=== PATIENT | female | born 1985 | race American Indian/Alaskan Native ===

== ENCOUNTER 2019-01-12 18:24 | Emergency (ER) | payer OTHER, SELFPAY ==
[2019-01-12 18:33] VITALS: BP 147/100; PULSE 112; RESP 20; TEMP 37.3; O2SAT 100
--- NOTE | 2019-01-12 18:47 | ED_ITS ---
HPI - Female Genitourinary General Chief complaint: Vaginal Bleeding Stated complaint: EXCESSIVE VAGINAL BLEEDING Time Seen by Provider: 01/12/19 18:46 Source: patient Mode of arrival: ambulatory Limitations: no limitations History of Present Illness HPI Narrative: The patient developed vaginal bleeding 3 days ago, this is her 4th day. The bleeding is much heavier than usual. She spotted about 1 month ago, she thought she had a menstrual cycle. She is uncertain of , she tells me she has been trying to conceive. She is 0, para 0. She has low back cramping. She has mild abdominal pain. She denies weakness and dizziness. She has no bleeding history. She is generally healthy. She denies dysuria. She has had no fever or chills. Related Data Home Medications Medication Instructions Recorded Confirmed cetirizine [Zyrtec] 10 mg PO DAILY 01/12/19 01/12/19 fluticasone propionate [Flonase 1 spray INTRANASAL DAILY 01/12/19 01/12/19 Allergy Relief] Allergies Allergy/AdvReac Type Severity Reaction Status Date / Time No Known Drug Allergies Allergy Verified 01/12/19 18:35 Review of Systems Review of Systems ROS Unobtainable: All systems reviewed & are unremarkable except as noted in HPI and below Constitutional Denies frequent falls ENT Ears, Nose, Mouth, and Throat: Denies dizziness Cardiovascular Denies chest pain, Denies irregular heart rhythm, Denies lightheadedness, Denies palpitations, Denies dyspnea, Denies dyspnea on exertion and Denies orthopnea Respiratory Denies cough, Denies dyspnea, Denies dyspnea on exertion and Denies wheezing Gastrointestinal Gastrointestinal: Reports abdominal pain (Mild suprapubic discomfort.), Denies change in bowel habits, Denies diarrhea, Denies nausea and Denies vomiting Genitourinary Reports as per HPI (Regarding vaginal bleeding), Denies hematuria, Denies flank pain, Denies urinary incontinence and Denies urinary urgency Musculoskeletal Reports back pain and Denies numbness Integumentary/Breasts Denies pruritus, Denies erythema, Denies rash and Denies wounds Neurologic Denies behavioral changes, Denies confusion, Denies dizziness, Denies frequent falls and Denies numbness Psychiatric Denies behavioral changes and Denies confusion Endocrine Denies palpitations Allergic/Immunologic Denies wheezing [facility] Medical History (Updated 01/13/19 @ 00:38 by Devon Johnson MD) No active medical problems (Acute) Surgical History (Updated 01/13/19 @ 00:38 by Devon Johnson MD) No pertinent past surgical history (Acute) Social History Smoking Status: Never smoker Social History Smoking Status: Never smoker Exam Initial Vital Signs Initial Vital Signs: Vital Signs Temperature 99.2 F 01/12/19 18:33 Pulse Rate 112 H 01/12/19 18:33 Respiratory Rate 20 01/12/19 18:33 Blood Pressure 147/100 H 01/12/19 18:33 Pulse Oximetry 100 01/12/19 18:33 Const General: cooperative and well developed Nutritional Appearance: well nourished Orientation: alert, awake, oriented x3 and not confused HENMT Head: normocephalic and atraumatic Resp Effort & Inspection: normal respiratory effort, able to speak in complete sentences, no respiratory distress and no use of accessory muscles Auscultation: clear to auscultation bilaterally, no rales, no rhonchi and no wheezes Cardio Rate: regular rate Rhythm: regular rhythm Heart Sounds: no click, no gallops, no murmurs and no rubs Pulses: normal peripheral pulses GI Inspection: non-distended Palpation: soft, no hepatosplenomegaly, No pulsatile mass and tender (Mild suprapubic tenderness without distention, guarding or rebound. No mas) Auscultation: normal bowel sounds Back/Spine/Pelvis Back: No CVA tenderness, No erythema and No warmth Skin General: no rashes or lesions noted, No jaundice and No petechiae Neuro General: alert, oriented x3, gait normal and no focal motor deficits Speech: speech normal Extrem General: full ROM, no pedal edema and no calf tenderness Course Course Narrative: was confirmed with a urine HCG. Serum HCG was greater than 5000. On ultrasound reveals an incomplete miscarriage, findings were consistent with a blighted ovum. The patient is counseled. She is hemodynamically stable. She will be discharged home, but should follow up with her doctor. Orders Ordered: ED Orders 01/12/19 20:00 ABO RH Type Stat Complete Blood Count AUTO DIFF Stat Comprehensive Metabolic Panel Stat HCG Quantitative Stat 01/12/19 21:55 OB <= 14 weeks fetus Stat Sodium Chloride (Normal Saline 0.9%) 1,000 mls @ 150 mls/hr IV CONT MYESHA Last Admin: 01/12/19 20:00 Dose: 150 mls/hr Vital Signs - 8 hr 01/12/19 18:33 01/12/19 19:44 01/12/19 21:00 Temperature 99.2 F Pulse Rate 112 H 94 H 103 H Respiratory Rate 20 14 18 Blood Pressure 147/100 H Blood Pressure [Right Arm] 125/88 110/80 Pulse Oximetry 100 99 100 01/12/19 22:00 Temperature Pulse Rate 103 H Respiratory Rate 17 Blood Pressure Blood Pressure [Right Arm] 131/98 H Pulse Oximetry 98 MDM - Female Genitourinary Lab Data Result diagrams: 01/12/19 20:00 01/12/19 20:00 Lab Results 01/12/19 01/12/19 01/12/19 Range/Units 20:00 20:00 20:00 WBC 10.2 (4.5-11.0) X10^3/uL RBC 3.68 L (4.0-5.2) X10^6/uL Hgb 11.6 L (12.0-16.0) g/dL Hct 34.0 L (36-46) % MCV 92.3 (80-100) fL MCH 31.6 (26-34) PG MCHC 34.2 (30-36) % RDW 12.6 (11.6-14.8) % Plt Count 341 (150-400) X10^3/uL Neut % (Auto) 64.4 (50-75) % Lymph % (Auto) 26.7 (25-40) % [place] % (Auto) 6.0 (3-14) % Eos % (Auto) 2.6 (2-4) % Baso % (Auto) 0.3 (0-2) % Neut # (Auto) 6600 (2072-8242) /uL Lymph # (Auto) 2700 (8430-2042) /uL [place] # (Auto) 600 (0-900) /uL Eos # (Auto) 300 (0-450) /uL Baso # (Auto) 0 (0-100) /uL Sodium 138 (137-145) mmol/L Potassium 3.7 (3.4-5.1) mmol/L Chloride 103 (98-107) mmol/L Carbon Dioxide 26 (22-32) mmol/L BUN 11 (7-17) mg/dL Creatinine 0.80 (0.52-1.04) mg/dL Estimated GFR > 60.0 (>60) mL/min BUN/Creatinine Ratio 13.8 (6-22) Glucose 103 H (70-100) mg/dL Calcium 9.3 (8.4-10.2) mg/dL Total Bilirubin 0.3 (0.2-1.3) mg/dL AST 18 (14-36) IU/L ALT 17 (9-52) IU/L Alkaline Phosphatase 65 (38-126) U/L Total Protein 7.3 (6.3-8.2) g/dL Albumin 4.2 (3.5-5.0) g/dL Globulin 3.1 (1.7-4.1) g/dL Albumin/Globulin Ratio 1.4 (1.0-2.8) HCG, Quant 5591.0 mIU/mL Blood Type O Positive Point of Care Testing Test Results Positive Imaging Data OB US:: Radiologist's impression: 5+5 week pole confirmed by crown rump length. There is a irregularly shaped gestational sac which contains a yolk sac, there is no heart tone. Findings are consistent with a blighted ovum. Discharge Plan Departure Patient Disposition: Home Clinical Impression: Incomplete miscarriage Instructions: DI for Miscarriage Activity Restrictions/Additional Instructions: Take Tylenol or Advil as needed for pain. Drink plenty of water, be sure you stay well hydrated. Expect continued heavy bleeding, it is uncertain how long this will occur. Return the ER if you develop significant weakness or dizziness. Return to the ER if you have increasing pain. Follow-up with your doctor next week. Prescriptions: No Action fluticasone propionate [Flonase Allergy Relief] 50 mcg/actuation [place],Suspension 1 spray INTRANASAL DAILY RF: 0 Zyrtec 10 mg Capsule 10 mg PO DAILY RF: 0
[2019-01-12 19:44] VITALS: BP 125/88; PULSE 94; RESP 14; O2SAT 99
[2019-01-12] MEDS: SODIUM CHLORIDE 0.9% 1,000 ML 150 ML IV (20:00)
[2019-01-12 20:19] LABS: Add Manual Diff / Slide Review NO; Basophils Absolute Auto 0 /uL (0-100); Basophils Percent Auto 0.3 % (0-2); Eosinophils Absolute Auto 300 /uL (0-450); Eosinophils Percent Auto 2.6 % (2-4); Hemoglobin 11.6 g/dL (12.0-16.0); Lymphocytes Absolute Auto 2700 /uL (1100-4500); Lymphocytes Percent Auto 26.7 % (25-40); Mean Corpuscular HGB Conc 34.2 % (30-36); Mean Corpuscular Hemoglobin 31.6 PG (26-34); Mean Corpuscular Volume 92.3 fL (80-100); Monocytes Absolute Auto 600 /uL (0-900); Neutrophils Absolute Auto 6600 /uL (1500-7000); Neutrophils Percent Auto 64.4 % (50-75); Platelet Count 341 X10^3/uL (150-400); Red Blood Cell Count 3.68 X10^6/uL (4.0-5.2); Red Cell Distribution Width 12.6 % (11.6-14.8); White Blood Cell Count 10.2 X10^3/uL (4.5-11.0)
[2019-01-12 20:35] LABS: Alanine Aminotransferase 17 IU/L (9-52); Albumin 4.2 g/dL (3.5-5.0); Albumin Globulin Ratio 1.4 (1.0-2.8); Alkaline Phosphatase 65 U/L (38-126); Aspartate Aminotransferase 18 IU/L (14-36); BUN Creatinine Ratio 13.8 (6-22); Bilirubin Total 0.3 mg/dL (0.2-1.3); Blood Urea Nitrogen 11 mg/dL (7-17); Calcium 9.3 mg/dL (8.4-10.2); Carbon Dioxide 26 mmol/L (22-32); Chloride 103 mmol/L (98-107); Estimated Glomerular Filt Rate > 60.0 mL/min (>60); Globulin 3.1 g/dL (1.7-4.1); Glucose 103 mg/dL (70-100); HEMOLYSIS < 15 (0-50); Potassium 3.7 mmol/L (3.4-5.1); Sodium 138 mmol/L (137-145); Total Protein 7.3 g/dL (6.3-8.2)
[2019-01-12 21:00] VITALS: BP 110/80; PULSE 103; RESP 18; O2SAT 100
--- NOTE | 2019-01-12 21:55 | DI.US.S_ITS ---
PROCEDURE: US OB <= 14 WEEKS FETUS INDICATIONS: VAGINAL BLEEDING. PREGNENT OUTSIDE/PRIOR DATING DATA: Last menstrual period (LMP): Not known. LMP-based estimated date of delivery (HUNTER): Not applicable. First dating scan (date and location): 01/12/19. Estimated date of delivery (HUNTER) from first dating scan: 09/07/19. TECHNIQUE: Real-time scanning was performed of the fetus and maternal pelvic organs, with image documentation. Endovaginal scanning was also performed to better visualize the fetus and maternal ovaries. COMPARISON: None. FINDINGS: Embryo: Single intrauterine gestation identified. pole and yolk sac are identified. [place]-rump length measures 0.2 cm corresponding to estimated ultrasound gestational age of 5 weeks 5 days. No heart motion identified. Gestational sac is slightly irregular morphology. Measurement variability in dating: +/- 4 weeks by LMP, +/- 7 days by mean sac diameter (use before 6 weeks gestation if crown-rump length not able to be measured), +/- 5 days by crown-rump length (up to 8 weeks 6 days gestation), +/- 7 days by crown-rump length (up to 13 weeks 6 days gestation). Maternal organs: Ovaries are sonographically normal. Limited images through the kidneys demonstrate no hydronephrosis. IMPRESSION: Intrauterine gestation with ultrasound estimated age of 5 weeks 5 days. Gestational sac is irregular and no heart motion identified. Findings concerning for blighted ovum/nonviable . Recommend correlation close clinical observation, correlation with serial beta hCG and short term followup ultrasound. Dictated by: Valentina Dillard MD, PhD on 01/13/2019 at 8:01 Approved by: Valentina Dillard MD, PhD on 01/13/2019 at 8:04
[2019-01-12 22:00] VITALS: BP 131/98; PULSE 103; RESP 17; O2SAT 98
[2019-01-13 00:30] VITALS: BP 115/86; PULSE 99; RESP 16; O2SAT 99
[2019-01-13] MEDS: KETOROLAC 60 MG/2 ML VIAL 30 MG IV (00:40)
== END 2019-01-13 01:00 | disposition home or self-care (01) ==
PROVIDERS: Emergency Provider Emergency Medicine
DX: O03.4 Incomplete spontaneous abortion without complication (principal)
CPT/HCPCS: 36591; 76801; 76817; 80053; 81025; 84702; 85025; 86900; 86901; 96361; 96374; 99283; 99284; J1885

== ENCOUNTER → 2021-06-21 08:11 | Outpatient (CLI) | payer OTHER, SELFPAY ==
--- NOTE | 2021-06-21 | DI.US.S_ITS ---
PROCEDURE: US ABDOMEN LIMITED INDICATIONS: HEPATOMEGALY TECHNIQUE: Real-time focused scanning was performed of the abdomen, with image documentation. COMPARISON: [facility], CT, CT ABDOMEN PELVIS WITH CONTRAST, 01/06/2021, 6:54. FINDINGS: The liver demonstrates normal size. The liver demonstrates generalized mildly increased echogenicity. This decreases ultrasound sensitivity for detection of hepatic masses. The main portal vein demonstrates normal size and demonstrates normal appearing, hepatopetal flow. No findings of gallstones or sludge are seen. The gallbladder wall is not thickened, measuring 3 mm or less. No specific pericholecystic fluid is seen. The sonographic Gutierrez sign is negative. There is no biliary dilatation, the common bile duct measures 3 mm. No significant pancreatic abnormality is seen on these images. IMPRESSION: Normal study. The liver does not appear enlarged. Mild fatty liver infiltration is noted. The gallbladder demonstrates a normal sonographic appearance. No biliary dilatation is seen. Dictated by: Bharat Elliott M.D. on 06/21/2021 at 8:57 Approved by: Bharat Elliott M.D. on 06/21/2021 at 8:58
== END ==
PROVIDERS: Referring Provider Physician Assistant; Visit Provider Physician Assistant
DX: K76.0 Fatty (change of) liver, not elsewhere classified (principal)
CPT/HCPCS: 76705